=== PATIENT | female | born 1940 ===

== ENCOUNTER 2017-12-19 15:35 | Inpatient (IN) | payer MEDICARE, MEDICAID ==
[2017-12-19 15:36] VITALS: BMI 26.5
--- NOTE | 2017-12-19 16:26 | ED PDOC ---
HPI: SOB/CHF/COPD Time Seen by Provider: 12/19/17 16:00 Chief Complaint (Nursing): Shortness Of Breath Chief Complaint (Provider): Shortness Of Breath History Per: Patient History/Exam Limitations: no limitations Onset/Duration Of Symptoms: Days Current Symptoms Are (Timing): Still Present Additional Complaint(s): 77 year old female with a past medical history of asthma who presents to the emergency department with a complaint of shortness of breath x1 week. Associated with constant fatigue, cough, and yellow sputum. Patient was recently seen in this facility on 12/09/2017 and diagnosed with acute exacerbation of chronic low back pain. Reports she was seen today by her primary care doctor, Dr. Ronnie Terrazas MD, and told to come to the emergency department for further evaluation. As per daughter, patient was given over the counter medication and a breathing treatment with mild relief of symptoms. Denies fever, chest pain, or leg swelling/pain. PMD: Dr. Ronnie Terrazas MD Past Medical History Reviewed: Historical Data, Nursing Documentation, Vital Signs Vital Signs: Last Vital Signs Temp 98.3 F 12/19/17 19:00 Pulse 70 12/19/17 20:21 Resp 18 12/19/17 20:21 BP 150/60 12/19/17 20:21 Pulse Ox 98 12/19/17 20:21 - Medical History PMH: Anxiety, Asthma, COPD, Depression, HTN, Hypercholesterolemia, Seizures Denies: HIV, Chronic Kidney Disease - Surgical History Surgical History: No Surg Hx - Family History Family History: States: Unknown Family Hx - Social History Current smoker - smoking cessation education provided: No Alcohol: None Drugs: Denies - Home Medications Home Medications: Ambulatory Orders Medication Instructions Recorded Fluticasone Nasal [Flonase] 2 spray ELENI DAILY PRN 09/18/16 Fluticasone/Salmeterol 500/50 1 puff IH Q12 09/18/16 [Advair Diskus 500/50] LORazepam [Ativan] 1 mg PO Q12 09/18/16 Levocetirizine Dihydrochloride 5 mg PO HS 09/18/16 [Xyzal] Mirtazapine [Remeron] 7.5 mg PO HS 09/18/16 Montelukast [Singulair] 10 mg PO HS 09/18/16 Omeprazole 20 mg PO DAILY 09/18/16 Sertraline [Zoloft] 75 mg PO DAILY 09/18/16 traMADol [Ultram] 50 mg PO Q6H PRN 09/18/16 Albuterol Sulfate [Ventolin Hfa] 2 puff IH Q6 PRN 12/19/17 Albuterol/Ipratropium [Duoneb 3 3 ml IH Q8 12/19/17 mg/0.5 mg (3 ml) UD] Atorvastatin [Lipitor] 10 mg PO HS 12/19/17 Doxepin [Sinequan] 50 mg PO HS 12/19/17 Mometasone 0.1% [Elocon Cream] 1 appl TOP DAILY 12/19/17 hydroCHLOROthiazide [Microzide] 12.5 mg PO DAILY 12/19/17 - Allergies Allergies/Adverse Reactions: Allergies Allergy/AdvReac Type Severity Reaction Status Date / Time Penicillins Allergy RASH Verified 12/09/17 11:48 Curb-65 Severity Score - CURB-65 Severity Score Confusion: No Bun >19mg/dl (>7mmol/L): No Respiratory Rate greater than/equal to 30: No Systolic BP <90 or Diastolic BP less than/equal 60mmHg: No Age >64: Yes Curb-65 Score: 1 Percentage 30-day mortality: 2.7% Wells Criteria for PE - Wells Criteria for Pulmonary Embolism Clinical Signs and Symptoms of DVT: No P.E is #1 Diagnosis, or Equally Likely: No Heart Rate >100: No Immobilization at least 3 days;Surgery previous 4 weeks: No Previous, objectively diagnosed PE or DVT: No Hemoptysis: No Malignancy w/treatment within 6 months, or palliative: No Total Score: 0 Review of Systems ROS Statement: Except As Marked, All Systems Reviewed And Found Negative (As per HPI, otherwise negative) Constitutional: Positive for: Other (Fatigue). Negative for: Fever Cardiovascular: Negative for: Chest Pain Respiratory: Positive for: Cough, Shortness of Breath, Sputum (yellow) Musculoskeletal: Negative for: Leg Pain (swelling) Physical Exam - Reviewed Nursing Documentation Reviewed: Yes Vital Signs Reviewed: Yes - Physical Exam Appears: Positive for: Well, Non-toxic, No Acute Distress Head Exam: Positive for: ATRAUMATIC, NORMAL INSPECTION, NORMOCEPHALIC Skin: Positive for: Normal Color, Warm, Dry ENT: Positive for: Other (dry mucuous membranes). Negative for: Pharyngeal Erythema, Tonsillar Exudate Neck: Positive for: Painless ROM Cardiovascular/Chest: Positive for: Regular Rate, Rhythm. Negative for: Murmur Respiratory: Positive for: Rhonchi (Slight rhonchi to the right base. Good air entry to the lungs bilaterally. ). Negative for: Accessory Muscle Use, Crackles , Wheezing, Respiratory Distress, Other (tachypneic) Gastrointestinal/Abdominal: Positive for: Normal Exam, Soft. Negative for: Tenderness Extremity: Positive for: Normal ROM, Pedal Edema (Mild trace edema to the lower legs bilaterally). Negative for: Tenderness Neurologic/Psych: Positive for: Alert, Oriented (x3) - Laboratory Results Result Diagrams: 12/19/17 16:50 12/19/17 16:50 - ECG O2 Sat by Pulse Oximetry: 99 (RA) Pulse Ox Interpretation: Normal Medical Decision Making Medical Decision Making: Time: 1625 Initial impression: Shortness of breath rule out COPD, rule out pneumonia rule out flu Initial plan: CMP Troponin I CBC w. diff Chest x-ray Albuterol 0.083% 2.5 mg INH Influenza A B --EKG: Normal sinus rhythm at 65 bpm. LVH. cxr no pneumonia pt improving with nebulizer, added steroids as well for copd. 18:30 Dr. Terrazas agreed to admit patient. 19:30 Explained plan of care to family and answered all questions. Scribe Attestation: Documented by Luda Miguel, acting as a scribe for Amisha Chun MD. Provider Scribe Attestation: All medical record entries made by the Scribe were at my direction and personally dictated by me. I have reviewed the chart and agree that the record accurately reflects my personal performance of the history, physical exam, medical decision making, and the department course for this patient. I have also personally directed, reviewed, and agree with the discharge instructions and disposition. Disposition - Clinical Impression Clinical Impression: COPD exacerbation - Patient ED Disposition Is Patient to be Admitted: Yes Counseled Patient/Family Regarding: Studies Performed, Diagnosis - Disposition Disposition Time: 18:00 Condition: STABLE
[2017-12-19] MEDS ORDERED: Albuterol 0.083% Inhal Sol (2.5 mg/3 mL) UD INH ONE ×2 (16:28→18:20)
[2017-12-19 17:01] LABS: BASO % 0.2 % (0.0-2.0); EOS # 0.1 K/uL (0.0-0.7); EOS % 0.6 % (0.0-4.0); HEMOGLOBIN 11.2 g/dL (12.0-16.0); LYMPH # 3.5 K/uL (1.0-4.3); LYMPH % 25.9 % (20.0-40.0); MEAN CELL VOLUME 81.7 fl (81.0-99.0); MEAN CORPUSCULAR HEMOGLOBIN 26.7 pg (27.0-31.0); MEAN CORPUSCULAR HGB CONC 32.7 g/dL (33.0-37.0); MEAN PLATELET VOLUME 7.5 fl (7.2-11.7); MONO # 1.5 K/uL (0.0-0.8); NEUT # 8.3 K/uL (1.8-7.0); NEUT % 62.3 % (50.0-75.0); RBC 4.18 Mil/uL (3.80-5.20); RED CELL DISTRIBUTION WIDTH 14.2 % (11.5-14.5); WHITE BLOOD COUNT 13.4 K/uL (4.8-10.8)
[2017-12-19 17:11] LABS: ALB/GLOB RATIO 0.7 (1.0-2.1); ALBUMIN 3.5 g/dL (3.5-5.0); ALT/SGPT 24 U/L (9-52); AST/SGOT 54 U/L (14-36); BLOOD UREA NITROGEN 14 mg/dl (7-17); CALCIUM 9.6 mg/dL (8.4-10.2); GFR AFRICAN-AMERICAN > 60; GFR NON-AFRICAN AMERICAN > 60
[2017-12-19] MEDS ORDERED: Potassium Chloride 20 mEq ER Tab PO ONE ×2 (17:19→18:23)
[2017-12-19] MEDS ORDERED: Albuterol 0.083% Inhal Sol (2.5 mg/3 mL) UD ONE (17:31)
--- NOTE | 2017-12-19 17:31 | RAD ---
HISTORY: COMPARISON: 09/24/2016. TECHNIQUE: Chest PA and lateral FINDINGS: LINES AND TUBES: None. LUNG AND PLEURA: The lungs are well inflated and clear. No pleural effusion or pneumothorax. HEART AND MEDIASTINUM: The heart is not enlarged. The hilar and mediastinal contours are within normal limits. SKELETAL STRUCTURES: The bony structures are within normal limits for the patient's age. VISUALIZED UPPER ABDOMEN: Normal. OTHER FINDINGS: None. IMPRESSION: No active pulmonary disease.
[2017-12-19] MEDS ORDERED: Azithromycin 500 MG in Sodium Chloride 0.9% 250 ML IVPB SCH (22:30)
[2017-12-19] MEDS ORDERED: Sodium Chloride 3% for Inhalation 4 ML VIAL.NEB IH PRN (22:32)
[2017-12-19] MEDS ORDERED: Promethazine/Cod 6.25mg-10mg/5ml Syr UD ONE (22:47)
[2017-12-19] MEDS: Promethazine/Cod 6.25mg-10mg/5ml Syr UD PO PRN (22:51)
[2017-12-20] MEDS ORDERED: methylPREDNISolone 40 MG in Sodium Chloride 0.9% 50 ML IVPB SCH (01:00)
[2017-12-20] MEDS: MethylPREDNISolone 40 mg Vial IVP SCH ×3 (01:25→17:23)
[2017-12-20] MEDS: Albuterol-Ipratrop 3 mg / 0.5 (3 ml) UD INH SCH ×4 (01:26→19:27)
[2017-12-20 06:10] LABS: HEMOGLOBIN 10.8 g/dL (12.0-16.0); MEAN CELL VOLUME 81.7 fl (81.0-99.0); MEAN CORPUSCULAR HEMOGLOBIN 27.1 pg (27.0-31.0); MEAN CORPUSCULAR HGB CONC 33.2 g/dL (33.0-37.0); RBC 3.98 Mil/uL (3.80-5.20); WHITE BLOOD COUNT 10.7 K/uL (4.8-10.8)
[2017-12-20 06:14] LABS: ALB/GLOB RATIO 0.7 (1.0-2.1); ALBUMIN 3.3 g/dL (3.5-5.0); ALT/SGPT 28 U/L (9-52); AST/SGOT 33 U/L (14-36); BLOOD UREA NITROGEN 14 mg/dl (7-17); CALCIUM 9.1 mg/dL (8.4-10.2); GFR AFRICAN-AMERICAN > 60; GFR NON-AFRICAN AMERICAN > 60; HDL CHOLESTEROL 28 MG/DL (30-70)
[2017-12-20 06:23] LABS: LDL CHOLESTEROL 96 mg/dL (0-129)
[2017-12-20 06:27] LABS: T4 8.44 ug/dl (5.5-11.0)
[2017-12-20 08:54] LABS: SQUAMOUS EPITHIAL 6 /hpf (0-5); URINE BACTERIA RARE (<OCC); URINE BILIRUBIN NEGATIVE (NEGATIVE); URINE BLOOD SMALL (NEGATIVE); URINE CLARITY CLOUDY (Clear); URINE COLOR AMBER (YELLOW); URINE GLUCOSE (UA) 50 mg/dL (Normal); URINE LEUKOCYTE ESTERASE TRACE Leu/uL (Negative); URINE PROTEIN 30 mg/dL (NEGATIVE)
[2017-12-20] MEDS ORDERED: Fluticasone-Salmeterol 500-50mcg Diskus IH SCH (09:00)
[2017-12-20] MEDS: Pantoprazole 40 mg EC Tab PO SCH (09:05)
[2017-12-20] MEDS: Promethazine/Cod 6.25mg-10mg/5ml Syr UD PO PRN ×2 (10:10→17:23)
--- NOTE | 2017-12-20 17:23 | CP.PCM.HP ---
History of Present Illness - History of Present Illness History of Present Illness: CC: SOB. 77 y/o F, Hx of COPD/Asthma, HTN, seen in my office on DOA and referred to ER [facility] for further evaluation of gradually increased moderate SOB, that began a week [employer], associated to productive cough, intermittent with yellowish sputum. Worsening symptoms: CHRISTINA. Chronic back pain 2nd to advanced disc disease at the inferior lumbar area, R knee pain. Aggravated factor: Movements/exercise. Pt denied: Fever, chills, epistaxis, CP, palpitations, n/v/d, abdominal pain, urinary symptoms, sick contact, [facility] CXR shows: No active pulmonary disease. Present on Admission - Present on Admission Any Indicators Present on Admission: No Review of Systems - Constitutional Constitutional: Other (negative) - EENT Eyes: Other (negative) Ears: Other (negative) Nose/Mouth/Throat: Nasal Congestion - Cardiovascular Cardiovascular: Other (negative) - Respiratory Respiratory: Cough, Dyspnea, Dyspnea on Exertion, Change in Mucous Color - Gastrointestinal Gastrointestinal: Other (negative) - Genitourinary Genitourinary: Other (negative) - Musculoskeletal Musculoskeletal: Arthralgias, Back Pain, Other (Knees pain) - Integumentary Integumentary: Other (negative) - Neurological Neurological: Other (negative) - Psychiatric Psychiatric: Anxiety, Depression - Endocrine Endocrine: Other (negative) - Hematologic/Lymphatic Hematologic: Other (negative) Past Patient History - Past Medical History & Family History Past Medical History?: Yes Pertinent Family History: Unknown - Past Social History Smoking Status: Never Smoked Alcohol: None Drugs: Denies Home Situation {Lives}: With Family - CARDIAC Hx Cardiac Disorders: Yes Hx Hypercholesterolemia: Yes Hx Hypertension: Yes Other/Comment: - PULMONARY Hx Respiratory Disorders: Yes Hx Asthma: Yes Hx Bronchitis: Yes Hx Chronic Obstructive Pulmonary Disease (COPD): Yes - NEUROLOGICAL Hx Neurological Disorder: Yes Hx Seizures: Yes - HEENT Hx HEENT Problems: No - RENAL Hx Chronic Kidney Disease: No - ENDOCRINE/METABOLIC Hx Endocrine Disorders: No - HEMATOLOGICAL/ONCOLOGICAL Hx Blood Disorders: No Hx AIDS: No Hx Human Immunodeficiency Virus (HIV): No - INTEGUMENTARY Hx Dermatological Problems: No - MUSCULOSKELETAL/RHEUMATOLOGICAL Hx Musculoskeletal Disorders: Yes (R-L knee pain) Hx Degenerative Joint Disease: Yes Hx Falls: Yes - GASTROINTESTINAL Hx Gastrointestinal Disorders: No - GENITOURINARY/GYNECOLOGICAL Hx Genitourinary Disorders: No - PSYCHIATRIC Hx Psychophysiologic Disorder: Yes Hx Anxiety: Yes Hx Depression: Yes Hx Substance Use: No - SURGICAL HISTORY Hx Surgeries: Yes Other/Comment: R TKR - ANESTHESIA Hx Anesthesia: Yes Hx Anesthesia Reactions: No Hx Malignant Hyperthermia: No Meds Allergies/Adverse Reactions: Allergies Allergy/AdvReac Type Severity Reaction Status Date / Time Penicillins Allergy RASH Verified 12/09/17 11:48 Physical Exam - Constitutional Appears: No Acute Distress - Head Exam Head Exam: NORMAL INSPECTION - Eye Exam Eye Exam: PERRL - ENT Exam ENT Exam: Normal Oropharynx - Neck Exam Neck exam: Positive for: Normal Inspection - Respiratory Exam Respiratory Exam: Decreased Breath Sounds, Rhonchi (scattered) - Cardiovascular Exam Cardiovascular Exam: REGULAR RHYTHM, Systolic Murmur (harsh 3/6 LSB Ao, radiated to neck vessels, also hear in [place].) - GI/Abdominal Exam GI & Abdominal Exam: Normal Bowel Sounds, Soft - Extremities Exam Extremities exam: Positive for: tenderness ( R knee) Additional comments: R TKR - Back Exam Back exam: tenderness (L-S) - Neurological Exam Neurological exam: Alert, Oriented x3 Additional comments: No motor/ sensory deficit. - Psychiatric Exam Psychiatric exam: Anxious, Depressed - Skin Skin Exam: Warm Results - Vital Signs Recent Vital Signs: Last Vital Signs Temp 98.4 F 12/20/17 16:27 Pulse 77 12/20/17 16:27 Resp 20 12/20/17 16:27 BP 133/53 L 12/20/17 16:27 Pulse Ox 95 12/20/17 16:27 reviewed Sumeet - Labs Result Diagrams: 12/20/17 05:30 12/20/17 05:30 Labs: Laboratory Results - last 24 hr 12/19/17 12/20/17 12/20/17 16:50 05:30 05:30 WBC 10.7 RBC 3.98 Hgb 10.8 L Hct 32.5 L MCV 81.7 MCH 27.1 MCHC 33.2 RDW 14.0 Plt Count 391 Sodium 141 Potassium 3.6 Chloride 101 Carbon Dioxide 30 Anion Gap 14 BUN 14 Creatinine 0.5 L Est GFR ( Amer) > 60 Est GFR (Non-Af Amer) > 60 Random Glucose 194 H Calcium 9.1 Total Bilirubin 0.6 AST 33 ALT 28 Alkaline Phosphatase 71 Total Protein 8.0 Albumin 3.3 L Globulin 4.7 H Albumin/Globulin Ratio 0.7 L Triglycerides 76 Cholesterol 153 LDL Cholesterol Direct 96 HDL Cholesterol 28 L Thyroxine (T4) 8.44 TSH 3rd Generation 0.18 L Urine Color Urine Clarity Urine pH Ur Specific Davis Urine Protein Urine Glucose (UA) Urine Ketones Urine Blood Urine Nitrate Urine Bilirubin Urine Urobilinogen Ur Leukocyte Esterase Urine RBC (Auto) Urine Microscopic WBC Ur Squamous Epith Cells Urine Bacteria Influenza Typ A,B (EIA) Negative for flu a/b 12/20/17 08:44 WBC RBC Hgb Hct MCV MCH MCHC RDW Plt Count Sodium Potassium Chloride Carbon Dioxide Anion Gap BUN Creatinine Est GFR ( Amer) Est GFR (Non-Af Amer) Random Glucose Calcium Total Bilirubin AST ALT Alkaline Phosphatase Total Protein Albumin Globulin Albumin/Globulin Ratio Triglycerides Cholesterol LDL Cholesterol Direct HDL Cholesterol Thyroxine (T4) TSH 3rd Generation Urine Color Alisia Urine Clarity Cloudy Urine pH 6.0 Ur Specific Davis 1.023 Urine Protein 30 Urine Glucose (UA) 50 Urine Ketones Negative Urine Blood Small Urine Nitrate Negative Urine Bilirubin Negative Urine Urobilinogen 2.0 H Ur Leukocyte Esterase Trace Urine RBC (Auto) 11 H Urine Microscopic WBC 10 H Ur Squamous Epith Cells 6 H Urine Bacteria Rare Influenza Typ A,B (EIA) reviewed J.P. - Imaging and Cardiology Chest x-ray Status: Report reviewed by me (J.P.) Assessment & Plan (1) COPD exacerbation Status: Acute Priority: High (2) HTN (hypertension) Status: Chronic Priority: Medium (3) Aortic stenosis Status: Chronic (4) Allergic rhinitis Status: Chronic Priority: Low (5) Pain in right knee Status: Chronic Priority: Medium (6) Status post total knee replacement, right Status: Chronic Priority: Medium (7) Lumbar disc disease Status: Chronic Priority: High (8) Anxiety Status: Chronic Priority: Medium (9) Depression Status: Chronic Priority: Medium - Assessment and Plan (Free Text) Plan: EKG, U C-S, Sputum C-S, Zithromax, Duoneb, Solu-Medrol, Phenergan with Co and rest of Tx. PT, OT eval. - Date & Time Date: 12/20/17 Time: 12:30
--- NOTE | 2017-12-20 18:36 | CARD ---
APPROVED REPORT EKG Measurement Heart [id number] <Conclusion> Normal sinus rhythm Left ventricular hypertrophy with repolarization abnormality Cannot rule out Septal infarct, age undetermined Abnormal ECG
[2017-12-21] MEDS: Azithromycin 500 MG in Sodium Chloride 0.9% 250 ML IVPB SCH (00:18)
[2017-12-21] MEDS: MethylPREDNISolone 40 mg Vial IVP SCH ×2 (00:19→08:23)
[2017-12-21] MEDS: Albuterol-Ipratrop 3 mg / 0.5 (3 ml) UD INH SCH ×4 (01:06→19:57)
[2017-12-21] MEDS: Pantoprazole 40 mg EC Tab PO SCH (08:16)
--- NOTE | 2017-12-21 10:33 | CARD ---
APPROVED REPORT EXAM: Two-dimensional and M-mode echocardiogram with Doppler and color Doppler. Other Information Quality : AverageRhythm : INDICATION COPD 2D DIMENSIONS IVSd1.18 (0.7-1.1cm)LVDd4.06 (3.9-5.9cm) LVOT Diameter2.02 (1.8-2.4cm)PWd1.41 (0.7-1.1cm) LVDs2.73 (2.5-4.0cm)FS (%) 32.8 % M-Mode DIMENSIONS Left Atrium (MM)4.20 (2.5-4.0cm)IVSd1.43 (0.7-1.1cm) Aortic Root2.37 (2.2-3.7cm)LVDd5.07 (4.0-5.6cm) Aortic Cusp Exc.0.90 (1.5-2.0cm)PWd1.00 (0.7-1.1cm) FS (%) 38 %LVDs3.17 (2.0-3.8cm) Aortic Valve AoV Peak Rcdzmekr254.4cm/sAoV VTI95.4cmAO Peak GR.75mmHg LVOT Peak Gdqrclah197.0cm/sLVOT VTI28.69cmAO Mean GR.46mmHg CAMMY (VMAX)0.60rj5TXG (VTI)0.24uj0XO P 1/2 Dtpi149ug Mitral Valve MV E Fgdjbcdd799.1cm/sMV E Peak Gr.170mmHgMV DECEL FDDC290wx MV A Bjenwxbz079.4cm/sMV SVR96hxM/A ratio1.2 MVA (PHT)3.98cm2 TDI Lateral E' Peak V10.76cm/sMedial E' Peak V9.70cm/sE/Lateral E'11.7 E/Medial E'13.0 Pulmonary Valve PV Peak Qhmdibiw290.0cm/s Tricuspid Valve TR Peak Qowmbhnh105ww/sTR Peak Gr.50mmHg LEFT VENTRICLE The left ventricle is normal size. There is borderline concentric left ventricular hypertrophy. Left ventricle systolic function is normal. The Ejection Fraction is 60-65%. There is normal LV segmental wall motion. Transmitral Doppler flow pattern is Grade II-pseudonormal filling dynamics. RIGHT VENTRICLE The right ventricle is normal size. There is normal right ventricular wall thickness. The right ventricular systolic function is normal. ATRIA The left atrium is mildly dilated. The right atrium size is at upper limits of normal. AORTIC VALVE The aortic valve is moderately sclerotic/calcified. There is mild to moderate aortic regurgitation. There is severe valvular aortic stenosis. Calculated aortic valve area is 0.63 cm2 with maximum pressure gradient of 117 mmHg. MITRAL VALVE The mitral valve leaflets are thickened. There is no evidence of mitral valve prolapse. There is no mitral valve stenosis. Mitral regurgitation is moderate to severe. TRICUSPID VALVE The tricuspid valve is normal in structure. There is moderate to severe tricuspid regurgitation. Right ventricular systolic pressure is estimated at 72 mmHg. There is severe pulmonary hypertension. PULMONIC VALVE The pulmonary valve is normal in structure. There is no pulmonic valvular regurgitation. GREAT VESSELS The aortic root is normal in size. The IVC is plethoric. PERICARDIAL EFFUSION The pericardium appears normal. <Conclusion> The left ventricle is normal size. There is borderline concentric left ventricular hypertrophy. There is normal LV segmental wall motion. Left ventricle systolic function is normal. The Ejection Fraction is 60-65%. Transmitral Doppler flow pattern is Grade II-pseudonormal filling dynamics. The right atrium size is at upper limits of normal. The aortic valve is moderately sclerotic/calcified. There is mild to moderate aortic regurgitation. There is severe valvular aortic stenosis. Calculated aortic valve area is 0.63 cm2 with maximum pressure gradient of 117 mmHg. Mitral regurgitation is moderate to severe. There is moderate to severe tricuspid regurgitation. There is severe pulmonary hypertension.
--- NOTE | 2017-12-21 16:27 | CP.PCM.PN ---
Subjective - Date & Time of Evaluation Date of Evaluation: 12/21/17 Time of Evaluation: 13:00 - Subjective Subjective: F/U CAP cough at times scanty at times with more productive amount of yellowish flegm , less chest congestion Objective - Vital Signs/Intake and Output Vital Signs (last 24 hours): Temp Pulse Resp BP Pulse Ox 98.3 F 73 20 161/85 H 95 12/21/17 16:17 12/21/17 16:17 12/21/17 16:17 12/21/17 16:17 12/21/17 16:17 - Medications Medications: Current Medications Albuterol/Ipratropium (Duoneb 3 Mg/0.5 Mg (3 Ml) Ud) 3 ml INH RQ6 [facility] Last Admin: 12/21/17 13:14 Dose: 3 ml Atorvastatin Calcium (Lipitor) 10 mg PO [facility] Last Admin: 12/20/17 21:13 Dose: 10 mg Doxepin HCl (Sinequan) 50 mg PO [facility] Last Admin: 12/20/17 21:16 Dose: 50 mg Fluticasone Propionate (Flonase) 2 spr ELENI DAILY PRN PRN Reason: Allergy symptoms Last Admin: 12/20/17 09:04 Dose: 2 spr Hydrochlorothiazide (Microzide) 12.5 mg PO DAILY [facility] Last Admin: 12/21/17 08:15 Dose: 12.5 mg Azithromycin 500 mg/ Sodium (Chloride) 250 mls @ 250 mls/hr IVPB DAILY@0000 [facility] PRN Reason: Protocol Last Admin: 12/21/17 00:18 Dose: 250 mls/hr Loratadine (Claritin) 10 mg PO [facility] Last Admin: 12/20/17 21:13 Dose: 10 mg Lorazepam (Ativan) 1 mg PO Q12 PRN PRN Reason: Restlessness Last Admin: 12/20/17 12:24 Dose: 1 mg Methylprednisolone (Solu-Medrol) 40 mg IVP Q8 [facility] Last Admin: 12/21/17 08:23 Dose: 40 mg Mirtazapine (Remeron) 7.5 mg PO [facility] Last Admin: 12/20/17 21:14 Dose: 7.5 mg Montelukast Sodium (Singulair) 10 mg PO [facility] Last Admin: 12/20/17 21:14 Dose: 10 mg Pantoprazole Sodium (Protonix Ec Tab) 40 mg PO DAILY [facility] Last Admin: 12/21/17 08:16 Dose: 40 mg Promethazine HCl/Codeine (Phenergan/Codeine Oral Syrup) 10 ml PO Q6 PRN PRN Reason: Cough Last Admin: 12/20/17 17:23 Dose: 10 ml Sertraline HCl (Zoloft) 75 mg PO DAILY [facility] Last Admin: 12/21/17 08:17 Dose: 75 mg Tramadol HCl (Ultram) 50 mg PO Q6H PRN PRN Reason: Pain, severe (8-10) Last Admin: 12/20/17 19:19 Dose: 50 mg Zolpidem Tartrate (Ambien) 5 mg PO HS [facility] Last Admin: 12/20/17 21:13 Dose: 5 mg - Labs Labs: 12/20/17 05:30 12/20/17 05:30 - Constitutional Appears: No Acute Distress, Chronically Ill - Head Exam Head Exam: NORMAL INSPECTION - Eye Exam Eye Exam: PERRL - ENT Exam ENT Exam: Mucous Membranes Moist, Normal Oropharynx - Neck Exam Neck Exam: Normal Inspection - Respiratory Exam Respiratory Exam: Decreased Breath Sounds (at bases), Rhonchi (scattered), Wheezes (RLL) - Cardiovascular Exam Cardiovascular Exam: REGULAR RHYTHM, Murmur (systolic harsh 3/6 LSB Ao radiated to neck vessels, also heard in apex.) - GI/Abdominal Exam GI & Abdominal Exam: Soft, Normal Bowel Sounds - Extremities Exam Extremities Exam: Normal Inspection, Tenderness (R knee , R TKR) - Back Exam Back Exam: tenderness - Neurological Exam Neurological Exam: Alert, Oriented x3 Additional comments: no focal motor/sensory deficit - Psychiatric Exam Psychiatric exam: Anxious, Depressed - Skin Skin Exam: Warm Assessment and Plan (1) COPD exacerbation Status: Acute (2) HTN (hypertension) Status: Chronic (3) Aortic stenosis Status: Chronic (4) Allergic rhinitis Status: Chronic (5) Pain in right knee Status: Chronic (6) Status post total knee replacement, right Status: Chronic (7) Lumbar disc disease Status: Chronic (8) Anxiety Status: Chronic (9) Depression Status: Chronic - Assessment and Plan (Free Text) Plan: continue DuoNeb , Solu Medrol , Zithromax , Prometh with Codeine , Ultram and rest of treatment
--- NOTE | 2017-12-21 21:05 | CON ---
CARDIOLOGY CONSULT DATE: HISTORY OF PRESENT ILLNESS: The patient is a 77-year-old female who has a history of chronic obstructive lung disease, on nasal O2 at home and is unaware of any prior history of coronary artery disease. She presented because of shortness of breath for one week associated with fatigue, cough, and productive yellowish sputum. The patient denies any retrosternal chest pain. PAST MEDICAL HISTORY: History of bronchial asthma, chronic obstructive lung disease, history of total right knee replacement, and history of hypertension. SOCIAL HISTORY: The patient is a nonsmoker. MEDICATIONS: The patient is on Ambien 5 mg at bedtime, Ativan 1 mg p.o. every 12 hours p.r.n,, Zithromax 500 mg intravenously daily, Claritin 10 mg at bedtime, Flonase 2 sprays daily, Lipitor 10 mg once a day, hydrochlorothiazide 12.5 mg daily, Phenergan With Codeine 10 mg every 6 hours, Remeron 7.5 mg at bedtime, Singulair 10 mg at bedtime, Solu-Medrol 40 mg intravenously every 8 hours, and Zoloft 75 mg daily. PHYSICAL EXAMINATION: GENERAL: The patient is an elderly female who does not appear to be in acute distress. VITAL SIGNS: Blood pressure 161/56, heart rate 76, temperature 97.9, and respirations 20. HEENT: Normocephalic. CHEST: Bilateral rhonchi. HEART: S1 and S2 regular. Grade 3/6 ejection systolic murmur over left sternal border. ABDOMEN: Soft. EXTREMITIES: No edema. LABORATORY DATA: Hemoglobin and hematocrit are 10.8 and 32.5, white count and platelet count are within normal limits. SMA-7; sodium 141, potassium 3.6, chloride 101, CO2 of 30, glucose 194, BUN 14, and creatinine 0.5. The patient's potassium yesterday on admission was 2.8. TSH level is below normal at 3.18. EKG revealed sinus rhythm at the rate of 65, LVH, cannot rule out septal infarct. Echocardiographic study revealed borderline concentric LVH with normal ejection fraction and normal wall motion. Severe valvular aortic stenosis with the calculated area of 0.63 cm2, [id number] mitral insufficiency, and severe pulmonary hypertension. Chest x-ray revealed overinflated lungs, no cardiomegaly, and prominent central vasculature most likely central pulmonary arteries. RECOMMENDATIONS: Continue current Ambien, Ativan, IV Zithromax, and IV Solu-Medrol. Cardiac catheterization will be to the patient and her family and will be discussed with the primary physician Dr. Terrazas if the patient agrees for aortic valve replacement or TAVR. Kaleb Hills MD
[2017-12-21] MEDS: Promethazine/Cod 6.25mg-10mg/5ml Syr UD PO PRN (21:09)
[2017-12-22] MEDS: Azithromycin 500 MG in Sodium Chloride 0.9% 250 ML IVPB SCH
[2017-12-22] MEDS: Albuterol-Ipratrop 3 mg / 0.5 (3 ml) UD INH SCH ×4 (01:02→20:02)
[2017-12-22] MEDS: MethylPREDNISolone 40 mg Vial IVP SCH ×3 (01:30→16:02)
[2017-12-22] MEDS: Pantoprazole 40 mg EC Tab PO SCH (09:00)
--- NOTE | 2017-12-22 17:10 | CP.PCM.PN ---
Subjective - Date & Time of Evaluation Date of Evaluation: 12/22/17 Time of Evaluation: 13:50 - Subjective Subjective: F/U COPD Less SOB , chest congestion improved, less dry cough. Objective - Vital Signs/Intake and Output Vital Signs (last 24 hours): Temp Pulse Resp BP Pulse Ox 98.2 F 56 L 20 157/70 H 94 L 12/22/17 16:03 12/22/17 16:03 12/22/17 16:03 12/22/17 16:03 12/22/17 16:03 - Medications Medications: Current Medications Albuterol/Ipratropium (Duoneb 3 Mg/0.5 Mg (3 Ml) Ud) 3 ml INH RQ6 [facility] Last Admin: 12/22/17 13:04 Dose: 3 ml Atorvastatin Calcium (Lipitor) 10 mg PO HS [facility] Last Admin: 12/21/17 21:09 Dose: 10 mg Azithromycin (Zithromax) 500 mg PO DAILY@0900 [facility] Doxepin HCl (Sinequan) 50 mg PO [facility] Last Admin: 12/21/17 21:10 Dose: 50 mg Fluticasone Propionate (Flonase) 2 spr ELENI DAILY PRN PRN Reason: Allergy symptoms Last Admin: 12/20/17 09:04 Dose: 2 spr Hydrochlorothiazide (Microzide) 12.5 mg PO DAILY [facility] Last Admin: 12/22/17 10:00 Dose: 12.5 mg Loratadine (Claritin) 10 mg PO HS [facility] Last Admin: 12/21/17 21:09 Dose: 10 mg Lorazepam (Ativan) 1 mg PO Q12 PRN PRN Reason: Restlessness Last Admin: 12/20/17 12:24 Dose: 1 mg Methylprednisolone (Solu-Medrol) 40 mg IVP Q8 [facility] Last Admin: 12/22/17 16:02 Dose: 40 mg Mirtazapine (Remeron) 7.5 mg PO HS [facility] Last Admin: 12/21/17 21:09 Dose: 7.5 mg Montelukast Sodium (Singulair) 10 mg PO HS [facility] Last Admin: 12/21/17 21:09 Dose: 10 mg Pantoprazole Sodium (Protonix Ec Tab) 40 mg PO DAILY [facility] Last Admin: 12/22/17 09:00 Dose: 40 mg Promethazine HCl/Codeine (Phenergan/Codeine Oral Syrup) 10 ml PO Q6 PRN PRN Reason: Cough Last Admin: 12/21/17 21:09 Dose: 10 ml Sertraline HCl (Zoloft) 75 mg PO DAILY [facility] Last Admin: 12/22/17 09:00 Dose: 75 mg Tramadol HCl (Ultram) 50 mg PO Q6H PRN PRN Reason: Pain, severe (8-10) Last Admin: 12/22/17 10:27 Dose: 50 mg Zolpidem Tartrate (Ambien) 5 mg PO HS [facility] Last Admin: 12/21/17 21:17 Dose: 5 mg - Labs Labs: 12/20/17 05:30 12/20/17 05:30 - Constitutional Appears: No Acute Distress - Head Exam Head Exam: NORMAL INSPECTION - Eye Exam Eye Exam: PERRL - ENT Exam ENT Exam: Normal Exam - Neck Exam Neck Exam: Normal Inspection - Respiratory Exam Respiratory Exam: Decreased Breath Sounds (at bases), Rhonchi - Cardiovascular Exam Cardiovascular Exam: REGULAR RHYTHM, Murmur (3/6 LSB , Aorta) - GI/Abdominal Exam GI & Abdominal Exam: Soft, Normal Bowel Sounds - Extremities Exam Extremities Exam: Tenderness (R knee) - Back Exam Back Exam: tenderness (L-S) - Neurological Exam Neurological Exam: Alert, CN II-XII Intact, Oriented x3 Additional comments: no motor/sensory deficit - Psychiatric Exam Psychiatric exam: Anxious, Depressed - Skin Skin Exam: Warm Assessment and Plan (1) COPD exacerbation Status: Acute (2) HTN (hypertension) Status: Chronic (3) Aortic stenosis Status: Chronic (4) Allergic rhinitis Status: Chronic (5) Pain in right knee Status: Chronic (6) Status post total knee replacement, right Status: Chronic (7) Lumbar disc disease Status: Chronic (8) Anxiety Status: Chronic (9) Depression Status: Chronic - Assessment and Plan (Free Text) Plan: ECHO LVEF 60-65% , severe 0.63 cm2 , mid to moderate ,mod to severe MR and TR , severe Pulmonary Hypertension, discussed with Patient Cardiac Cath and modalities of AVR , Patient does not want any further invasive procedure, Cardiac f/u appreciated
--- NOTE | 2017-12-22 19:14 | PN ---
DATE: 12/22/2017 SUBJECTIVE: The patient is experiencing minimal productive cough. She denies any dizziness or chest pain. PHYSICAL EXAMINATION VITAL SIGNS: Blood pressure of 169/66, heart rate of 62, temperature of 97.7, and respirations of 20. HEENT: Normocephalic. CHEST: Bilateral rhonchi. HEART: S1 and S2 regular. Grade 4/6 ejection systolic murmur over left sternal border. ABDOMEN: Soft. EXTREMITIES: No edema. ASSESSMENT: 1. Severe aortic stenosis. 2. Exacerbation of chronic obstructive lung disease. 3. Severe pulmonary hypertension. 4. Consider underlying pneumonia. RECOMMENDATIONS: Continue current Ambien 5 mg at bedtime, continue IV Zithromax 500 mg daily, continue albuterol inhaler as well as Flonase nasal spray. Continue Lipitor 10 mg once a day, hydrochlorothiazide 12.5 mg once a day, Singulair 10 mg once a day, Solu-Medrol 40 mg intravenously q. 8 hours. Cardiac catheterization was presented to the patient, however, she declined the idea of cardiac catheterization or any interventional or severe aortic valve stenosis had the same problem and lived above 89 years old. Kaleb Hills MD
[2017-12-22] MEDS: Promethazine/Cod 6.25mg-10mg/5ml Syr UD PO PRN (22:49)
[2017-12-23] MEDS: MethylPREDNISolone 40 mg Vial IVP SCH ×4 (00:20→18:05)
[2017-12-23] MEDS: Albuterol-Ipratrop 3 mg / 0.5 (3 ml) UD INH SCH ×4 (00:59→19:01)
[2017-12-23] MEDS: Pantoprazole 40 mg EC Tab PO SCH (08:38)
[2017-12-23] MEDS: Promethazine/Cod 6.25mg-10mg/5ml Syr UD PO PRN (14:22)
--- NOTE | 2017-12-23 15:59 | CP.PCM.PN ---
Subjective - Date & Time of Evaluation Date of Evaluation: 12/23/17 Time of Evaluation: 11:40 - Subjective Subjective: F/U COPD Breathing better , cough improved Objective - Vital Signs/Intake and Output Vital Signs (last 24 hours): Temp Pulse Resp BP Pulse Ox 98.8 F 82 18 107/69 94 L 12/23/17 15:58 12/23/17 15:58 12/23/17 15:58 12/23/17 15:58 12/23/17 15:58 - Medications Medications: Current Medications Albuterol/Ipratropium (Duoneb 3 Mg/0.5 Mg (3 Ml) Ud) 3 ml INH RQ6 [facility] Last Admin: 12/23/17 13:19 Dose: 3 ml Atorvastatin Calcium (Lipitor) 10 mg PO [facility] Last Admin: 12/22/17 21:00 Dose: 10 mg Azithromycin (Zithromax) 500 mg PO DAILY@0900 [facility] Last Admin: 12/23/17 08:39 Dose: 500 mg Doxepin HCl (Sinequan) 50 mg PO [facility] Last Admin: 12/22/17 21:00 Dose: 50 mg Fluticasone Propionate (Flonase) 2 spr ELENI DAILY PRN PRN Reason: Allergy symptoms Last Admin: 12/20/17 09:04 Dose: 2 spr Hydrochlorothiazide (Microzide) 12.5 mg PO DAILY [facility] Last Admin: 12/23/17 08:37 Dose: 12.5 mg Loratadine (Claritin) 10 mg PO [facility] Last Admin: 12/22/17 21:00 Dose: 10 mg Lorazepam (Ativan) 1 mg PO Q12 PRN PRN Reason: Restlessness Last Admin: 12/23/17 08:36 Dose: 1 mg Methylprednisolone (Solu-Medrol) 40 mg IVP Q8 [facility] Last Admin: 12/23/17 08:38 Dose: 40 mg Mirtazapine (Remeron) 7.5 mg PO [facility] Last Admin: 12/22/17 21:00 Dose: 7.5 mg Montelukast Sodium (Singulair) 10 mg PO HS [facility] Last Admin: 12/22/17 21:00 Dose: 10 mg Pantoprazole Sodium (Protonix Ec Tab) 40 mg PO DAILY [facility] Last Admin: 12/23/17 08:38 Dose: 40 mg Promethazine HCl/Codeine (Phenergan/Codeine Oral Syrup) 10 ml PO Q6 PRN PRN Reason: Cough Last Admin: 12/23/17 14:22 Dose: 10 ml Sertraline HCl (Zoloft) 75 mg PO DAILY [facility] Last Admin: 12/23/17 08:39 Dose: 75 mg Tramadol HCl (Ultram) 50 mg PO Q6H PRN PRN Reason: Pain, severe (8-10) Last Admin: 12/22/17 10:27 Dose: 50 mg Zolpidem Tartrate (Ambien) 5 mg PO HS [facility] Last Admin: 12/22/17 21:00 Dose: 5 mg - Labs Labs: 12/20/17 05:30 12/20/17 05:30 - Constitutional Appears: No Acute Distress - Head Exam Head Exam: NORMAL INSPECTION - Eye Exam Eye Exam: PERRL - ENT Exam ENT Exam: Normal Exam - Neck Exam Neck Exam: Normal Inspection - Respiratory Exam Respiratory Exam: Decreased Breath Sounds (at bases ), Rhonchi (scattered) - Cardiovascular Exam Cardiovascular Exam: REGULAR RHYTHM, Murmur (3/6 LSB Ao) - GI/Abdominal Exam GI & Abdominal Exam: Soft, Normal Bowel Sounds - Extremities Exam Extremities Exam: Tenderness (R knee) - Back Exam Back Exam: tenderness (L-S) - Neurological Exam Neurological Exam: Alert, CN II-XII Intact, Oriented x3 Additional comments: no focal motor/sensory deficit - Psychiatric Exam Psychiatric exam: Anxious, Depressed - Skin Skin Exam: Warm Assessment and Plan (1) COPD exacerbation Status: Acute (2) Aortic stenosis Status: Chronic (3) Pulmonary hypertension Status: Acute (4) HTN (hypertension) Status: Chronic (5) Allergic rhinitis Status: Chronic (6) Pain in right knee Status: Chronic (7) Status post total knee replacement, right Status: Chronic (8) Lumbar disc disease Status: Chronic (9) Anxiety Status: Chronic (10) Depression Status: Chronic - Assessment and Plan (Free Text) Plan: continue DuoNeb , SoluMedrol and rest of treatment , sputum C-S ( neg ), discussed with Patient AVR but patient again refused any invasive procedure
--- NOTE | 2017-12-23 19:35 | PN ---
DATE: 12/23/2017 SUBJECTIVE: The patient denies chest pain. She is mildly short of breath. No dizziness. No palpitation. PHYSICAL EXAMINATION: VITAL SIGNS: Blood pressure 167/65, heart rate 67, temperature 97.6, and respirations 20. HEENT: Normocephalic. CHEST: Clear. HEART: S1 and S2 regular. Grade IV/ ejection systolic murmur over left sternal border. ABDOMEN: Soft. EXTREMITIES: No edema. ASSESSMENT: 1. Severe aortic stenosis. 2. Exacerbation of chronic obstructive lung disease. 3. Severe pulmonary hypertension. 4. Pneumonia. RECOMMENDATIONS: Case was discussed with Dr. Terrazas in details. Dr. Terrazas has approach the patient about possible TAVR and the patient rejected this idea. The patient can be maintained on oral Zithromax 500 mg daily, Ativan 1 mg p.o. every 12 hours p.r.n., Lipitor 10 mg once a day, hydrochlorothiazide 12.5 mg once a day, Protonix 20 mg orally once a day, Solu-Medrol 40 mg intravenously every 8 hours. Kaleb Hills MD
[2017-12-24] MEDS: MethylPREDNISolone 40 mg Vial IVP SCH ×2 (00:05→08:42)
[2017-12-24] MEDS: Albuterol-Ipratrop 3 mg / 0.5 (3 ml) UD INH SCH ×3 (00:59→13:30)
[2017-12-24 08:03] VITALS: BP 184/71; PULSE 63; RESP 18; TEMP 98.5; O2SAT 98
[2017-12-24] MEDS: Pantoprazole 40 mg EC Tab PO SCH (08:22)
[2017-12-24 11:12] LABS: HEMOGLOBIN 10.4 g/dL (12.0-16.0); MEAN CORPUSCULAR HEMOGLOBIN 26.8 pg (27.0-31.0); MEAN CORPUSCULAR HGB CONC 32.7 g/dL (33.0-37.0); RBC 3.88 Mil/uL (3.80-5.20); RED CELL DISTRIBUTION WIDTH 14.4 % (11.5-14.5); WHITE BLOOD COUNT 15.6 K/uL (4.8-10.8)
[2017-12-24 11:25] LABS: BLOOD UREA NITROGEN 25 mg/dl (7-17); CALCIUM 9.2 mg/dL (8.4-10.2); GFR AFRICAN-AMERICAN > 60; GFR NON-AFRICAN AMERICAN > 60
--- NOTE | 2017-12-24 14:26 | PQF GENQUE ---
This form is a permanent part of the medical record 12/24/17 Dr. Terrazas, Please clarify if Pneumonia is ruled in or ruled out. Seen in the PMD office and referred to the ER for increased moderate SOB that began a week [employer] associated with productive cough intermittent with yellow sputum. WBC 13.4, afebrile, CXR: No active pulmonary disease. H&P: COPD exacerbation. Follow up progress note 12/21/17: F/u CAP Medication includes Zithromax, Duonebs, Singulair, Phenergan with Codeine, Clarification of your documentation is requested to better reflect the severity of illness and intensity of treatment of your patient. Indicators present PHYSICIAN'S RESPONSE Based on your medical judgment of the clinical indicators outlined above please clarify the following: [] Practitioner response [] If unable to determine, please check the box, sign and date. Present On Admission (POA) Indicator: [] Present at the time of admission [] Not present at the time of admission [] Clinically Undetermined In responding to this query, please exercise your independent professional judgment. The fact that a question is asked does not imply that any particular answer is desired or expected. Thank you for your clarification on this documentation. If you have any questions please call:ext [phone] * Thank you, Kayla Smyth RN CDMP [facility]
--- NOTE | 2017-12-24 16:31 | CP.PCM.DIS ---
Provider - Provider Date of Admission: 12/19/17 18:20 Attending physician: Ronnie Alex MD Diagnosis - Discharge Diagnosis (1) COPD exacerbation Status: Acute Priority: High (2) Aortic stenosis Status: Chronic (3) Pulmonary hypertension Status: Acute (4) HTN (hypertension) Status: Chronic Priority: Medium (5) Allergic rhinitis Status: Chronic Priority: Low (6) Pain in right knee Status: Chronic Priority: Medium (7) Status post total knee replacement, right Status: Chronic Priority: Medium (8) Lumbar disc disease Status: Chronic Priority: High (9) Anxiety Status: Chronic Priority: Medium (10) Depression Status: Chronic Priority: Medium Hospital Course - Lab Results Lab Results: Micro Results 12/21/17 08:42 Urine,Clean Catch Urine Culture - Final Gram Positive Cocci 12/20/17 18:00 Sputum Gram Stain - Final 12/20/17 18:00 Sputum Sputum Culture - Final NORMAL ORAL JOSE DAVID Most Recent Lab Values WBC 15.6 K/uL (4.8-10.8) H 12/24/17 10:45 RBC 3.88 Mil/uL (3.80-5.20) 12/24/17 10:45 Hgb 10.4 g/dL (12.0-16.0) L 12/24/17 10:45 Hct 31.8 % (34.0-47.0) L 12/24/17 10:45 MCV 82.0 fl (81.0-99.0) 12/24/17 10:45 MCH 26.8 pg (27.0-31.0) L 12/24/17 10:45 MCHC 32.7 g/dL (33.0-37.0) L 12/24/17 10:45 RDW 14.4 % (11.5-14.5) 12/24/17 10:45 Plt Count 470 K/uL (130-400) H 12/24/17 10:45 MPV 7.5 fl (7.2-11.7) 12/19/17 16:50 Neut % (Auto) 62.3 % (50.0-75.0) 12/19/17 16:50 Lymph % (Auto) 25.9 % (20.0-40.0) 12/19/17 16:50 Howard % (Auto) 11.0 % (0.0-10.0) H 12/19/17 16:50 Eos % (Auto) 0.6 % (0.0-4.0) 12/19/17 16:50 Baso % (Auto) 0.2 % (0.0-2.0) 12/19/17 16:50 Neut # (Auto) 8.3 K/uL (1.8-7.0) H 12/19/17 16:50 Lymph # (Auto) 3.5 K/uL (1.0-4.3) 12/19/17 16:50 Howard # (Auto) 1.5 K/uL (0.0-0.8) H 12/19/17 16:50 Eos # (Auto) 0.1 K/uL (0.0-0.7) 12/19/17 16:50 Baso # (Auto) 0.0 K/uL (0.0-0.2) 12/19/17 16:50 Sodium 139 mmol/l (132-148) 12/24/17 10:45 Potassium 3.7 MMOL/L (3.6-5.0) 12/24/17 10:45 Chloride 99 mmol/L (98-107) 12/24/17 10:45 Carbon Dioxide 29 mmol/L (22-30) 12/24/17 10:45 Anion Gap 15 (10-20) 12/24/17 10:45 BUN 25 mg/dl (7-17) H 12/24/17 10:45 Creatinine 0.7 mg/dl (0.7-1.2) 12/24/17 10:45 Est GFR ( Amer) > 60 12/24/17 10:45 Est GFR (Non-Af Amer) > 60 12/24/17 10:45 Random Glucose 124 mg/dL (65-105) H 12/24/17 10:45 Calcium 9.2 mg/dL (8.4-10.2) 12/24/17 10:45 Total Bilirubin 0.6 mg/dl (0.2-1.3) 12/20/17 05:30 AST 33 U/L (14-36) 12/20/17 05:30 ALT 28 U/L (9-52) 12/20/17 05:30 Alkaline Phosphatase 71 U/L (38-126) 12/20/17 05:30 Troponin I 0.0370 ng/mL (0.00-0.120) 12/19/17 16:50 Total Protein 8.0 G/DL (6.3-8.2) 12/20/17 05:30 Albumin 3.3 g/dL (3.5-5.0) L 12/20/17 05:30 Globulin 4.7 gm/dL (2.2-3.9) H 12/20/17 05:30 Albumin/Globulin Ratio 0.7 (1.0-2.1) L 12/20/17 05:30 Triglycerides 76 mg/DL (0-149) 12/20/17 05:30 Cholesterol 153 mg/dL (0-199) 12/20/17 05:30 LDL Cholesterol Direct 96 mg/dL (0-129) 12/20/17 05:30 HDL Cholesterol 28 MG/DL (30-70) L 12/20/17 05:30 Thyroxine (T4) 8.44 ug/dl (5.5-11.0) 12/20/17 05:30 TSH 3rd Generation 0.18 mIU/ML (0.46-4.68) L 12/20/17 05:30 Urine Color Alisia (YELLOW) 12/20/17 08:44 Urine Clarity Cloudy (Clear) 12/20/17 08:44 Urine pH 6.0 (5.0-8.0) 12/20/17 08:44 Ur Specific Bo[place] 1.023 (1.003-1.030) 12/20/17 08:44 Urine Protein 30 mg/dL (NEGATIVE) 12/20/17 08:44 Urine Glucose (UA) 50 mg/dL (Normal) 12/20/17 08:44 Urine Ketones Negative mg/dL (NEGATIVE) 12/20/17 08:44 Urine Blood Small (NEGATIVE) 12/20/17 08:44 Urine Nitrate Negative (NEGATIVE) 12/20/17 08:44 Urine Bilirubin Negative (NEGATIVE) 12/20/17 08:44 Urine Urobilinogen 2.0 mg/dL (0.2-1.0) H 12/20/17 08:44 Ur Leukocyte Esterase Trace Kathe/uL (Negative) 12/20/17 08:44 Urine RBC (Auto) 11 /hpf (0-3) H 12/20/17 08:44 Urine Microscopic WBC 10 /hpf (0-5) H 12/20/17 08:44 Ur Squamous Epith Cells 6 /hpf (0-5) H 12/20/17 08:44 Urine Bacteria Rare (<OCC) 12/20/17 08:44 Influenza Typ A,B (EIA) Negative for flu a/b (NEGATIVE) 12/19/17 16:50 Discharge Exam - Head Exam Head Exam: NORMAL INSPECTION Discharge Plan - Discharge Medications Prescriptions: Promethazine/Codeine [Phenergan/Codeine Oral Syrup] 10 ml PO Q6 PRN #240 ml PRN Reason: Cough Prednisone [Nayan] 35 mg PO DAILY #56 tcp Budesonide/Formoterol Fumarate [Symbicort] 2 puff IH Q12 #1 aer - Follow Up Plan Condition: STABLE Disposition: DISCHARGED TO HOME CARE Instructions: Exacerbation of COPD (DC) Additional Instructions: follow up with dr alex in 1 week Referrals: Kaleb Hills MD [Staff Provider] - Ronnie Alex MD [Family Provider] -
== END 2017-12-24 14:25 | disposition home health service (06) | DRG 192 ==
LOC: H.ER 15:35 → H.ERHOLD 18:20 → H.MEDSURG1 20:47
PROVIDERS: ADMIT Internal Medicine Pulmonary Disease; ATTEND Internal Medicine Pulmonary Disease
PROC: 3E0F7GC Introduction of Other Therapeutic Substance into Respiratory Tract, Via Natural or Artificial Opening (ICD-10-PCS; principal; 2017-12-20)
DX: J44.1 Chronic obstructive pulmonary disease with (acute) exacerbation (principal); E78.00 Pure hypercholesterolemia, unspecified; F32.9 Major depressive disorder, single episode, unspecified; F41.9 Anxiety disorder, unspecified; G89.29 Other chronic pain; I10 Essential (primary) hypertension; I27.20 Pulmonary hypertension, unspecified; I35.0 Nonrheumatic aortic (valve) stenosis; J44.0 Chronic obstructive pulmonary disease with (acute) lower respiratory infection; M51.9 Unspecified thoracic, thoracolumbar and lumbosacral intervertebral disc disorder; Z96.651 Presence of right artificial knee joint; Z99.81 Dependence on supplemental oxygen; F45.9 Somatoform disorder, unspecified; J40 Bronchitis, not specified as acute or chronic; M19.90 Unspecified osteoarthritis, unspecified site; M25.562 Pain in left knee; M25.561 Pain in right knee; R56.9 Unspecified convulsions; Z79.899 Other long term (current) drug therapy; M54.5 Low back pain; R09.89 Other specified symptoms and signs involving the circulatory and respiratory systems

== ENCOUNTER 2018-10-30 10:22 | Emergency (ER) | payer MEDICAID, MEDICARE ==
[2018-10-30 10:36] VITALS: BMI 27.4
[2018-10-30 10:37] VITALS: BP 159/68; PULSE 74; RESP 18; TEMP 98.7; O2SAT 99
--- NOTE | 2018-10-30 12:19 | ED PDOC ---
HPI: Trauma/Fall - HPI Time Seen by Provider: 10/30/18 11:59 Chief Complaint (Nursing): Abnormal Skin Integrity Chief Complaint (Provider): Fall/face injury History Per: Patient History/Exam Limitations: no limitations Onset/Duration Of Symptoms: Days Injury Occurred (Timing): Hours Ago: (yesterday 10/29/2018 at 8am) Location Of Injury: Right: Face (above eye brow) Severity: None Associated Symptoms: denies: Dizziness, Dazed, LOC, Seizure, Memory Impairment, Other Additional History Per: Patient Additional Complaint(s): 78 y/o female presents to the ED for eval of facial injury sustained yesterday at 8am after tripping and falling over slippers. Patient states she hit the corner of a gun examiner she had on the ground. She denies loc, she states she was able to get up immediatley after fall, family member that accompanied her to ED also states that he assisted up and she was fine yesterday. Patient came in today because her home visit nurse urged to come for evaluation. Patient states thats she feels "fine", as per family she has been her usual self. Pt denies nausea, headache. dizziness, blurry vision, chest pain, sob, loss of balance. Pt walks with a cane. - Fall Fall:Prior To Injury: Tripped (tripped over slippers ). denies: Passed Out Past Medical History Vital Signs: Last Vital Signs Temp 98.7 F 10/30/18 10:43 Pulse 74 10/30/18 10:43 Resp 18 10/30/18 10:43 BP 159/68 H 10/30/18 10:43 Pulse Ox 99 10/30/18 10:43 - Medical History PMH: Anxiety, Asthma, Bronchitis, COPD, Depression, HTN, Hypercholesterolemia, Seizures Denies: HIV, Chronic Kidney Disease - Family History Family History: States: Unknown Family Hx - Living Arrangements Living Arrangements: With Family - Social History Alcohol: None - Home Medications Home Medications: Ambulatory Orders Medication Instructions Recorded Fluticasone Nasal [Flonase] 2 spray ELENI DAILY PRN 09/18/16 LORazepam [Ativan] 1 mg PO Q12 09/18/16 Levocetirizine Dihydrochloride 5 mg PO HS 09/18/16 [Xyzal] Mirtazapine [Remeron] 7.5 mg PO HS 09/18/16 Montelukast [Singulair] 10 mg PO HS 09/18/16 Omeprazole 20 mg PO DAILY 09/18/16 Sertraline [Zoloft] 75 mg PO DAILY 09/18/16 traMADol [Ultram] 50 mg PO Q6H PRN 09/18/16 Albuterol Sulfate [Ventolin Hfa] 2 puff IH Q6 PRN 12/19/17 Albuterol/Ipratropium [Duoneb 3 3 ml IH Q8 12/19/17 mg/0.5 mg (3 ml) UD] Atorvastatin [Lipitor] 10 mg PO HS 12/19/17 Doxepin [Sinequan] 50 mg PO HS 12/19/17 Mometasone 0.1% [Elocon Cream] 1 appl TOP DAILY 12/19/17 hydroCHLOROthiazide [Microzide] 12.5 mg PO DAILY 12/19/17 Budesonide/Formoterol Fumarate 2 puff IH Q12 #1 aer 12/24/17 [Symbicort] Prednisone [Nayan] 35 mg PO DAILY #56 tcp 12/24/17 Promethazine/Codeine 10 ml PO Q6 PRN #240 ml 12/24/17 [Phenergan/Codeine Oral Syrup] - Allergies Allergies/Adverse Reactions: Allergies Allergy/AdvReac Type Severity Reaction Status Date / Time Penicillins Allergy RASH Verified 12/09/17 11:48 Review of Systems ROS Statement: Except As Marked, All Systems Reviewed And Found Negative Constitutional: Negative for: Fever, Chills, Sweats, Weakness, Malaise Eyes: Negative for: Pain, Vision Change, Conjunctivae Inflammation, Eyelid Inf lammation, Redness Gastrointestinal: Negative for: Nausea, Vomiting, Abdominal Pain, Diarrhea, Constipation Genitourinary Female: Negative for: Dysuria Musculoskeletal: Negative for: Neck Pain, Shoulder Pain, Arm Pain, Back Pain, Hand Pain, Leg Pain, Foot Pain Skin: Positive for: Other (lac to right eye brow sustained after fall yesterday. ). Negative for: Rash Physical Exam - Reviewed Nursing Documentation Reviewed: Yes Vital Signs Reviewed: Yes - Physical Exam Appears: Positive for: Well, Non-toxic, No Acute Distress Head Exam: Positive for: NORMAL INSPECTION, NORMOCEPHALIC Skin: Positive for: Normal Color (approx 0.25 cm superficial laceration to right eye brow. with area of ecchymosis noted, slightly tender to touch. cleaned with 0.9 ns 50cc. dry no drainage or signs of infection. bacitirin applied and dressed with bandaid. ), Warm Eye Exam: Positive for: EOMI, Normal appearance, PERRL ENT: Positive for: Normal ENT Inspection Neck: Positive for: Normal, Painless ROM Cardiovascular/Chest: Positive for: Regular Rate, Rhythm Respiratory: Positive for: CNT, Normal Breath Sounds Pulses-Radial (L): 2+ Pulses-Radial (R): 2+ Gastrointestinal/Abdominal: Positive for: Normal Exam, Bowel Sounds, Soft Back: Positive for: Normal Inspection. Negative for: L CVA Tenderness, R CVA Te nderness Extremity: Positive for: Normal ROM Neurological/Psych: Positive for: Awake, Alert, Normal Tone, Symmetric/Intact Strength, Oriented - ECG O2 Sat by Pulse Oximetry: 99 - Progress ED Course And Treament: Right eyebrow laceration to right eye brow cleaned with 0.9ns, applied bacitricin and dressed with bandaid, laceration is superficial, unable to repair due to time frame of incident. area is dry, with dry blood in bed of injury. patient denies any other head jury, she denies being on asa or blood thinners, no other head injuries noted. No further work up needed. Pt stable for d/c pt states she understands course of treatment, and agrees with plan. Return to ED precautions. Disposition - Clinical Impression Clinical Impression: Fall, Facial injury - Patient ED Disposition Is Patient to be Admitted: No - Disposition Disposition: Routine/Home Disposition Time: 12:15 Condition: GOOD Instructions: Preventing Falls in the Older Adult, Head Injury Observation (DC) Print Language: UKRAINIAN - POA Present On Arrival: None
== END 2018-10-30 12:29 | disposition home or self-care (01) ==
LOC: H.ER 10:22
DX: S09.93XA Unspecified injury of face, initial encounter (principal); W19.XXXA Unspecified fall, initial encounter; Y92.89 Other specified places as the place of occurrence of the external cause